=== PATIENT | female | born 1955 | race Caucasian/White ===

== ENCOUNTER → 2018-05-12 | Outpatient (CLI) | payer BC | END | disposition home or self-care (01) | LOC: CDC 10:37 | DX: Z01.810 Encounter for preprocedural cardiovascular examination (principal); C50.411 Malignant neoplasm of upper-outer quadrant of right female breast; R94.31 Abnormal electrocardiogram [ECG] [EKG] | CPT/HCPCS: 93000 ==

== ENCOUNTER 2018-05-20 05:37 | Day surgery (SDC) | payer BC ==
[~2018-05-20] VITALS: Ht 166.4 cm; Wt 117.4 kg
[~2018-05-20 05:37] MED LIST: AMBIEN5 MG PO; FISH OIL 1,4001 EACH PO; MULTIPLE VITAM1 EAC4 PO; OMEPRAZOLE40 M1 PO; ORACEA40 MG PO; TRAMADOL HCL50 MG PO; VENLAFAXINE HCL75 M1 PO; XARELTO20 MG PO
[2018-05-20 06:19] VITALS: BP 144/80
[2018-05-20] MEDS ORDERED: HYDROCODON-ACE1 EAC7 PO (12:26)
[2018-05-20 14:33] VITALS: BP 131/97
[2018-05-20 15:25] VITALS: BP 120/72
== END 2018-05-20 15:27 | disposition home or self-care (01) ==
LOC: SDC 05:37 → NUC 05-28 08:00
DX: C50.411 Malignant neoplasm of upper-outer quadrant of right female breast (principal); Z17.0 Estrogen receptor positive status [ER+]; Z79.01 Long term (current) use of anticoagulants; Z86.718 Personal history of other venous thrombosis and embolism
CPT/HCPCS: 78195; 78999; 88305; 88307; 88342 TC; A9541; J0690; J1100; J1170; J1885; J2250; J2405; J3010; S0020

== ENCOUNTER 2018-07-02 10:18 | Day surgery (SDC) | payer BC ==
[~2018-07-02] VITALS: Ht 165.1 cm; Wt 117.5 kg
[~2018-07-02 10:18] MED LIST changes: +HYDROCODON-ACE1 EAC7 PO; +TRANSDERM-SCOP1 EACH TD; +TYLENOL EXTRA500 MG PO; +XANAX0.25 MG PO
[2018-07-02 10:47] VITALS: BP 142/66
[2018-07-02 17:10] VITALS: BP 117/56
[2018-07-02 20:00] VITALS: BP 129/59
[2018-07-03 00:29] VITALS: BP 117/60
[2018-07-03 04:12] VITALS: BP 120/60
[2018-07-03 08:10] VITALS: BP 104/54
== END 2018-07-03 11:15 | disposition home or self-care (01) ==
LOC: SDC 10:18 → 2SOUTH 15:55 → 2EAST 15:55 → ENRESERV 16:08 → 2EAST 17:07
PROC: 0HUT0JZ Supplement Right Breast with Synthetic Substitute, Open Approach (ICD-10-PCS; principal; 2018-07-02)
PROC: 0HTT0ZZ Resection of Right Breast, Open Approach (ICD-10-PCS; principal; 2018-07-02)
PROC: 0HHT0NZ Insertion of Tissue Expander into Right Breast, Open Approach (ICD-10-PCS; principal; 2018-07-02)
DX: C50.911 Malignant neoplasm of unspecified site of right female breast (principal); K21.9 Gastro-esophageal reflux disease without esophagitis; Z86.718 Personal history of other venous thrombosis and embolism; Z79.01 Long term (current) use of anticoagulants
CPT/HCPCS: 88307; G0378; J0131; J0690; J1100; J1170; J1650; J1885; J2250; J2405; J2710; J3010; J3475; J7643; S0020